=== PATIENT | male | born 1975 | race Caucasian/White ===

== ENCOUNTER 2020-04-30 08:11 | Inpatient (IN) | payer OTHER ==
[~2020-04-30] VITALS: Ht 172.7 cm; Wt 102.1 kg
[2020-04-30 08:17] VITALS: BP 147/94
[2020-04-30 08:52] LABS: ABSOLUTE EOSINOPHILS 0.1 thou/uL (0.0-0.7); ABSOLUTE MONOCYTES 0.5 thou/uL (0.0-1.2); ABSOLUTE NEUTROPHILS 3.6 thou/uL (1.6-8.1); BASOPHILS 0.5 %; EOSINOPHILS 1.5 %; HEMATOCRIT 48.5 % (42.0-52.0); HEMOGLOBIN 16.1 gm/dL (14.0-18.0); LYMPHOCYTES 19.4 %; MCH 28.2 pg (26.0-34.0); MCHC 33.1 g/dL (28.0-37.0); MCV 85.2 fL (80.0-100.0); MONOCYTES 9.2 %; MPV 7.2 fl. (7.2-11.1); NUCLEATED RBCS 0 /100WBC; PLATELET COUNT* 227 thou/uL (150-400); POLYS 69.4 %; WBC 5.1 thou/uL (4.0-11.0)
[2020-04-30 08:59] LABS: CALCIUM 8.8 mg/dL (8.5-10.1); CREATININE 1.1 mg/dL (0.6-1.3); POTASSIUM 4.3 mmol/L (3.5-5.1)
[2020-04-30 09:03] LABS: TOTAL PROTEIN 7.3 g/dL (6.4-8.2)
[2020-04-30 09:07] LABS: URINE BILIRUBIN NEGATIVE (Negative); URINE BLOOD NEGATIVE (Negative); URINE CLARITY CLEAR; URINE COLOR YELLOW; URINE GLUCOSE-RANDOM NEGATIVE (Negative); URINE KETONES NEGATIVE (Negative); URINE LEUKOCYTES-REFLEX NEGATIVE (Negative); URINE NITRITE-REFLEX NEGATIVE (Negative); URINE PROTEIN NEGATIVE (Negative); URINE SPECIFIC GRAVITY <= 1.005 (1.005-1.030); URINE UROBILINOGEN 0.2 E.U./dl (0.2-1.0)
--- NOTE | 2020-04-30 09:42 | NUR ---
Dana notified upon pt return. Pt was not connected to monitor as he was not prior to CT
[2020-04-30 15:31] VITALS: BP 128/85
[2020-04-30 16:13] VITALS: BP 122/84
--- NOTE | 2020-04-30 16:34 | NUR ---
PT ADMIITED FROM ER FOR ABD PAIN. HISTORY AND ASSESSMENT COMPLETE.
--- NOTE | 2020-04-30 18:17 | EKG ---
[place] [address] ELECTROCARDIOGRAM REPORT Name: NIKOLAI LLAMAS Room: [address] ADM IN .R.#: [id number] Admission: 04/30/20 Attend Phys: Nikolai Robles Discharge: Date of : 79 Date of Service: 04/30/20 0851 Report #: [id number] THIS REPORT FOR: //name// [facility] ED Test Date: 2020-04-30 Test Time: 08:51:17 Pat Name: NKIOLAI LLAMAS Department: Room: [facility] Gender: M Software Quality Analyst: LI : 1975 Requested By: Raudel Givens Order Number: [id number] MD: Wlil Tierney Measurements Intervals [place] Rate: 57 P: 34 NE: 165 QRS: -24 QRSD: 116 T: 5 QT: 421 QTc: 410 Interpretive Statements Sinus rhythm Borderline nonspecific intraventricular conduction delay Inferior infarct, old Lateral leads are also involved No previous ECG available for comparison Electronically Signed On 04-30-2020 18:16:59 HVAC ENGINEERING TECHNICIAN by Will Tierney [email or web address] <ELECTRONICALLY SIGNED> By: Will Tierney MD, FACC 04/30/20 1816 0851 0851 Will Tierney MD, [facility] /EPI
[2020-04-30 20:00] VITALS: BP 132/74
[2020-05-01 02:06] LABS: HEPATITIS B SURFACE AG Negative (Negative)
[2020-05-01 05:53] LABS: ABSOLUTE EOSINOPHILS 0.2 thou/uL (0.0-0.7); ABSOLUTE LYMPHOCYTES 1.1 thou/uL (0.8-5.3); ABSOLUTE MONOCYTES 0.7 thou/uL (0.0-1.2); BASOPHILS 0.5 %; EOSINOPHILS 3.5 %; HEMATOCRIT 45.4 % (42.0-52.0); HEMOGLOBIN 15.3 gm/dL (14.0-18.0); LYMPHOCYTES 18.6 %; MCH 28.8 pg (26.0-34.0); MCHC 33.7 g/dL (28.0-37.0); MCV 85.6 fL (80.0-100.0); MPV 7.9 fl. (7.2-11.1); NUCLEATED RBCS 0 /100WBC; PLATELET COUNT* 216 thou/uL (150-400); POLYS 66.4 %; RDW-CV 14.2 % (10.5-14.5); WBC 6.1 thou/uL (4.0-11.0)
[2020-05-01 06:07] LABS: ALBUMIN 3.6 g/dL (3.4-5.0); CALCIUM 8.9 mg/dL (8.5-10.1); CREATININE 1.1 mg/dL (0.6-1.3); POTASSIUM 3.8 mmol/L (3.5-5.1); TOTAL PROTEIN 6.5 g/dL (6.4-8.2)
--- NOTE | 2020-05-01 07:13 | NUR ---
ASSUMED PT'S CARE @ ABOUT 1900. ALERT AND ORIENTED. UP AD INA. VSS ON RA. PT SLEPT WELL THIS SHIFT. MEDS GIVEN PER EMAR. NPO AFTER MIDNIGHT FOR POSSIBLE LAP CHOLEY TODAY. CALL LIGHT WITHIN REACH. WILL CONTINUE TO MONITOR.
[2020-05-01 08:05] VITALS: BP 121/72
--- NOTE | 2020-05-01 11:46 | NUR ---
Pt is A&O. Resides at home with . Independent. No DME. No hx of SNF or HH. Goal is home at sc. Plan lap eleanor today. No needs anticipated.
[2020-05-01 16:05] VITALS: BP 134/62
--- NOTE | 2020-05-01 17:45 | NUR ---
PATIENT RESTING IN BED. PATIENT HAD LAP CJOLE THIS AM WITHOUT INCIDIENT. PATIENT SLEPT MOST OF AFTERNOON AFTER RETURNING FROM SURGERY. PATIENT ALERT AND AWAKE THIS EVENING. PATIENT TOLERATING REGULAR DIET. PATIENT DENIES ANY NAUSEA. PATIENT HAS COMPLAINTS OF MILD PAIN, TREATED WITH ICE PACK, DENIES NEED FOR MEDICATION. PATIENT DENIES ANY NEEDS AT THIS TIME. CALL LIGHT WITHIN REACH.
[2020-05-01 20:00] VITALS: BP 126/69
[2020-05-02] VITALS: BP 130/70
[2020-05-02 03:35] VITALS: BP 116/53
--- NOTE | 2020-05-02 05:45 | NUR ---
ASSUMED PT'S CARE @ ABOUT 1900. ALERT AND ORIENTED. VSS O 2L NC WITH CAPNO IN PLACE POST SURG. 4 LAP SITES INTIACT. ALTHOUGH LAT SITE CLOSEST TO PT'S UMBILICAL CORD DID HAVE DRIED DRAINAGE, WHIC PT VOICED IT HAPPENED WHEN HE STRETCHED TO GRAB SOMETHING. LAP SITE REMIANS INTACT AT THIS TIME. PT SLEPT WELL THIS SHIFT. DECLINED ZOFRAN THIS SHIFT. PRN OXY GIVEN X1 THIS SHIFT. PT ANTICIPATING DC TODAY. CALL LIGHT WITHIN REACH. WILL CONTINUE TO MONITOR.
[2020-05-02 08:10] VITALS: BP 132/76
[2020-05-02] MEDS ORDERED: OXYCODONE HCL 55 MG PO (09:56)
[2020-05-02 09:59] VITALS: BP 132/76
--- NOTE | 2020-05-02 11:10 | NUR ---
PATIENT DISCHARGED TO HOME. DISCHARGE PAPERS REVIEWED AND SIGNED. PRESCRIPTIONS AND INFORMATION SHEETS GIVEN. IV REMOVED. PATIENT DENIES ANY FURTHER NEEDS. PATIENT TAKEN BY WHEELCHAIR TO EXIT. LEFT WITH SON.
[2020-05-02 12:59] VITALS: BP 132/76
--- NOTE | 2020-05-03 12:44 | OP ---
[address] [address] OPERATIVE REPORT Name: NIKOLAI LLAMAS Room: [address] IN .R.#: [id number] Admission: 04/30/20 Attend Phys: Nolan Wren Discharge: 05/02/20 Date of : 79 Report #: [id number] THIS REPORT FOR: cc: [place] - No family physician/PCP FAM - No family physician/PCP ~ Nikolai Robles DO DICTATED BY: Graham Arzola DO DATE OF SERVICE: 05/01/2020 PREOPERATIVE DIAGNOSIS: Cholecystitis. POSTOPERATIVE DIAGNOSIS: Cholecystitis. SURGEON: Nikolai Robles DO LOSS PREVENTION MANAGER: Graham Arzola, PGY5 OPERATION PERFORMED: Laparoscopic cholecystectomy. ANESTHESIA: General and TAP block. ESTIMATED BLOOD LOSS: 10 mL. SPECIMEN: Gallbladder. COMPLICATIONS: None. INDICATIONS: The patient is a 45-year-old male that presented to the Emergency Department with abdominal pain. He was found to have cholelithiasis, possible cholecystitis. He was informed of the risks and benefits of laparoscopic cholecystectomy with risks including, but not limited to bleeding, infection, bile duct injury, bowel injury, need for open procedure, need for reoperation, hernia formation, and chronic diarrhea. He understood these risks and decided to proceed with surgery. DESCRIPTION OF PROCEDURE: After informed consent was obtained, the patient was brought to the operating room and placed in supine position. Scheduled antibiotics had been given. General anesthesia was administered with an ET tube. Bilateral transversus abdominis plane blocks were placed by Anesthesia. The patient was prepped and draped in the usual sterile fashion. A surgical pause was held to confirm proper patient and procedure. An infraumbilical incision was made with an 11 blade. Dissection was bluntly carried down to the fascia, which was elevated with 2 Kochers and incised using cautery. The peritoneum was elevated with 2 Kellys and incised [place] [address] OPERATIVE REPORT Name: NIKOLAI LLAMAS Room: [address] IN [facility].#: [id number] Admission: 04/30/20 Attend Phys: Nolan Wren Discharge: 05/02/20 Date of : [birth year] Report #: [id number] Finger was introduced into the abdomen. Bilateral stay sutures were placed with 0 Vicryl. We used palpation to confirm that we were intraperitoneal. The Yessica trocar was introduced and secured. Abdomen was insufflated. A camera was introduced and attention was turned towards the right upper quadrant. The patient was positioned head up and right side up. The gallbladder was quite distended, but soft. Three additional ports were placed under direct visualization, all 5 mm in size in the epigastrium and 2 in the right upper quadrant. The gallbladder was grasped and elevated cephalad. There were some thin adhesions that were taken down using cautery. Alpesh's pouch was grasped and retracted laterally. The peritoneum overlying the hepatocystic triangle was incised using cautery. This plane was developed laterally and medially. Blunt dissection with a [place] was used to circumferentially dissect the cystic duct and cystic artery. There was a small arterial branch of the cystic artery that was encountered. The cystic artery was singly clipped proximal to this branch point, the bleeding was well controlled. Once a critical view of safety was obtained with 2 and only 2 structures entering the gallbladder, the cystic duct was doubly clipped and the distal clip on the cystic artery was placed. Weck Hem-o-dayo clips were used. Laparoscopic mal were used to divide the cystic duct and the cystic artery. The gallbladder was elevated and dissected free from the liver bed. Once completely freed, the gallbladder was placed within an EndoCatch bag and placed aside. The gallbladder fossa was inspected. Cautery was used for hemostasis. The right upper quadrant was thoroughly irrigated and suctioned. The patient was repositioned supine. The right upper quadrant was again suctioned. Abdomen was desufflated. Ports were removed under direct visualization. The gallbladder was removed through the umbilical incision. Fascia was closed with a single [id number]-[id number]-xuhoa using 0 Vicryl. Previous stay sutures were removed. This incision was closed in layered fashion using 3-0 Vicryl and 4-0 Monocryl. Remainder of skin was closed using 4-0 Monocryl. All counts were correct. The patient was emerged from anesthesia and transferred to the PACU and subsequently back to the floor in stable condition. <ELECTRONICALLY SIGNED> By: Nikolai Robles DO 05/03/20 1244 1306 [id number] Robles DO /brian
--- NOTE | 2020-05-06 11:06 | PATH ---
[address] [address] PATHOLOGY RPT PROCEDURE Name: NIKOLAI VASQUEZ Room: [address] IN M.R.#: [id number] Admission: 04/30/20 Date of : 79 Discharge: 05/02/20 Report #: [id number] Path Case #: [id number] [facility] Accession Number: [id number] . 01 Material submitted: . gallbladder - GALLBLADDER AND CONTENTS . 01 Clinical history: . BILIARY COLIC, ABDOMINAL PAIN ACUTE CHOLECYSTITIS . 02 Diagnosis: Gallbladder (cholecystectomy): - Mild chronic cholecystitis with cholelithiasis. LBQ 05/03/2020 1541 Local . 02 Comment: We find no evidence of malignancy in any of the tissue examined. (SWK/db; 05/03/2020) . 02 Electronically signed: . Robel Junior MD, Pathologist NPI- [id number] . 01 Gross description: . The specimen is received in formalin labeled "Nikolai Vasquez, gallbladder and contents" and consists of an intact green gallbladder measuring 9.5 x 4.0 x 3.8 cm. The margin is inked black. Opening reveals a lumen filled with viscous green bile and multiple minute green gravel-like calculi measuring up to 0.2 cm. The mucosa is green with yellow stippling and with an average wall thickness of 0.1 cm. No masses are identified. Premium Card Cancellation Clerk sections are submitted in A1. (SDY; 05/02/2020) SYU/SYU 05/02/2020 1517 Local . 02 Pathologist provided ICD-10: K80.10 . 02 CPT . 008936 Specimen Comment: A courtesy copy of this report has been sent to [phone] Specimen Comment: Report sent to Performed at: [address] [id number] MD Abhi Venegas MD Phone: [phone] Performed at: 02 [place] [address] PATHOLOGY RPT PROCEDURE Name: NIKOLAI VASQUEZ Room: [address] IN M.R.#: [id number] Admission: 04/30/20 Date of : 79 Discharge: 05/02/20 Report #: [id number] Path Case #: [id number] [address], [place] [id number] MD Robel Junior MD Phone: [phone]
== END 2020-05-02 11:10 | disposition home or self-care (01) | DRG 419 ==
LOC: M.ERS 08:11 → M.TBA-ER 12:32 → M.3W 12:32
PROVIDERS: Emergency Medicine Emergency Medical Services; ADMIT Surgery; ATTEND Surgery
PROC: 0FT44ZZ Resection of Gallbladder, Percutaneous Endoscopic Approach (ICD-10-PCS; principal; 2020-05-01)
DX: K80.00 Calculus of gallbladder with acute cholecystitis without obstruction (principal); F17.220 Nicotine dependence, chewing tobacco, uncomplicated; R74.01 Elevation of levels of liver transaminase levels; Z79.899 Other long term (current) drug therapy

== ENCOUNTER 2021-05-10 18:51 | Emergency (ER) | payer OTHER ==
[~2021-05-10] VITALS: Ht 172.7 cm; Wt 104.3 kg
[~2021-05-10 18:51] MED LIST: OXYCODONE HCL 55 MG PO
[2021-05-10 21:28] VITALS: BP 140/86
== END 2021-05-10 21:28 | disposition home or self-care (01) ==
LOC: M.ERS 18:51
DX: S90.32XA Contusion of left foot, initial encounter (principal); M25.572 Pain in left ankle and joints of left foot; Z79.899 Other long term (current) drug therapy; W22.8XXA Striking against or struck by other objects, initial encounter; Y93.89 Activity, other specified; Y92.89 Other specified places as the place of occurrence of the external cause; Y99.8 Other external cause status